=== PATIENT | female | born 1975 | race Two or more races ===

== ENCOUNTER 2019-10-01 19:21 | Emergency (ER) | payer OTHER ==
[~2019-10-01] VITALS: Ht 172.7 cm; Wt 72.7 kg
--- NOTE | 2019-10-01 20:35 | NUR ---
MED STUDENT BS FOR EXAM. PT AWAKE, ALERT, RESP EVEN & UNLABORED. SPEECH CLEAR, SPEAKING IN SOFT VOICE. PT'S FRIEND IN ROOM. PT DENIES RECREATIONAL DRUG USE; IS TAKING MELATONIN.
[2019-10-01] MEDS ORDERED: MELATONIN (20:38)
--- NOTE | 2019-10-01 20:50 | NUR ---
PT AMBULATORY TO [facility] W/ SLOW STEADY GAIT. PER [facility]: PT HAD AT LEAST 1/5TH VODKA TODAY. STATES PT WAS A , HAS PTSD, WAS TAKING PRESCRIPTION MEDS BUT STOPPED.
[2019-10-01 21:07] VITALS: BP 109/71
--- NOTE | 2019-10-01 21:10 | NUR ---
PT STATES "I'M HERE FOR DETOX"
--- NOTE | 2019-10-01 21:11 | NUR ---
DR LARIOS BS FOR EXAM
== END 2019-10-01 21:34 | disposition home or self-care (01) ==
LOC: ED 21:01
DX: F10.129 Alcohol abuse with intoxication, unspecified (principal); F20.9 Schizophrenia, unspecified; F15.151 Other stimulant abuse with stimulant-induced psychotic disorder with hallucinations; R07.89 Other chest pain; F17.210 Nicotine dependence, cigarettes, uncomplicated; I10 Essential (primary) hypertension; E11.9 Type 2 diabetes mellitus without complications; Z72.89 Other problems related to lifestyle; Y90.9 Presence of alcohol in blood, level not specified
CPT/HCPCS: 99283; 99284